=== PATIENT | male | born 1995 | race Caucasian/White ===

== ENCOUNTER 2024-02-14 16:07 | Emergency (ER) | payer BC, SELFPAY ==
[2024-02-14 16:10] VITALS: BP 151/75
[2024-02-14 16:43] VITALS: BMI 25.8
[2024-02-14 16:46] VITALS: BP 124/74
[2024-02-14 17:00] VITALS: BP 112/59
--- NOTE | 2024-02-14 17:03 | ED.GENMED ---
History of Present Illness
General
Chief Complaint: Heart Rate Problem
Source: patient
Exam Limitations: none
Time Seen by Provider: 02/14/24 17:01
Nursing documentation reviewed up to this point in time: agreed with
History of Present Illness
History of Present Illness:
37 male presents to the ER for evaluation. Patient reports for the past 24 hours he has intermittently felt a fluttering in his chest. He reports he looks on his watch and the beat look different than his other beats. He denies any associated
shortness of breath or chest pain with this. He did have this in the past was seen by cardiology, send looks cardiology here at [place] but was not able to get a Holter monitor because it took long to order. He did have a normal echo.
He has no issues with exercise and runs 3 times a week.
Past History
Past History
ED Past Medical History: None
ED Past Surgical History: None
Social History
Tobacco: Non-smoker
Alcohol: None
Drug: None
Review of Systems
Review of Systems
Allergies reviewed?: Yes
All Other Systems: ROS reviewed and negative except as documented in HPI and ROS
Constitutional: Reports no symptoms
Respiratory: Reports no symptoms
Cardiac: Reports other (fluttering sensation ); Denies chest pain or syncope
ABD/GI: Reports no symptoms
Musculoskeletal: Reports no symptoms
Skin: Reports no symptoms
Neurological: Reports no symptoms
Psychiatric: Reports no symptoms
Phy Exam
General Physical Exam
General Presentation: no apparent distress
General age: appears stated age
General Skin: warm and dry
General Habitus: normal
General Mental: alert
General Hydration: appears well hydrated
Cardiovascular Exam
Cardiovascular Exam: regular rate/rhythm, no murmur and normal peripheral pulses
Pulmonary Exam
Pulmonary Exam: lungs clear and no respiratory distress
Neurological Exam
Neurological Exam: alert and oriented x3
Musculoskeletal Exam
Musculoskeletal Exam: full ROM
Skin Exam
Skin Exam: normal color and warm/dry
Psychiatric Exam
Psychiatric Exam: normal mood/affect
Course
Orders/Labs/Results
Orders:
Orders
02/14/24 16:12
Electrocardiogram (*1) Urgent
Reason for Study: Palpitations
EKG- Treatment ONCE
02/14/24 16:54
Basic Metabolic Panel Urgent
Complete Blood Count/With Diff Urgent
Magnesium Urgent
TSH Reflex To Free T4 Urgent
Abnormal Lab Results
02/14/24
16:54
MPV 11.7 H fL
(7.4-10.4)
Glucose 105 H mg/dl
(70-99)
02/14/24 16:54
02/14/24 16:54
Vital Signs
Initial and Last Documented VS:
Initial Vital Signs
Temp Pulse Resp BP Pulse Ox
98 F 66 18 151/75 99
02/14/24 16:10 02/14/24 16:10 02/14/24 16:10 02/14/24 16:10 02/14/24 16:10
Last Documented Vital Signs
Temp Pulse Resp BP Pulse Ox
98 F 62 20 122/63 99
02/14/24 16:10 02/14/24 18:15 02/14/24 18:15 02/14/24 18:00 02/14/24 18:15
MDM/Problems Addressed
Differential Diagnosis Includes:
Not limited to arrhythmia
MDM/Problems Addressed:
Patient is a 29-year-old male who presented for evaluation of a fluttering sensation in his chest. He had this previously and was seen by cardiology had a normal echo but never had a Holter monitor. Patient presents awake alert no acute distress
he denies any chest pain shortness of breath with this. This is similar to his previous episode however he has not had it in a while. On the monitor patient has had very intermittent occasional PVCs likely the cause of his symptoms. EKG is normal
sinus rhythm normal electrolytes no other acute lab abnormalities. Because patient is having symptoms of PVCs would recommend discharging back to cardiology for follow-up and recommend a Holter monitor that he never received in the past. He has
seen [facility] will refer back to them. Stable for discharge home.
*Pulse Oximetry
Patient hypoxic: no
*EKG
Interpreted by ED Provider?: Yes
Interpretation: normal
Heart Rate: 75
Rate: normal
Rhythm: sinus
Ischemia: no ischemia
*Critical Care Note
Total Time (30-74mins, 75-104mins- exclusive of procedures): Not Applicable
ED Attending Note
-
Portions of this chart may have been created with voice recognition software.� Occasional wrong word or��sound alike� substitutions may have occurred due to the inherent limitations of voice recognition software.
Discharge Plan
Departure
Patient Disposition: Home (Routine Discharge)
Date of Disposition: 02/14/24
Time of Disposition: 18:42
Patient with high blood pressure during this ER visit?: Yes
Condition: Fair
Covid-19: Not Applicable
Discharge Problem:
Heart palpitations
Instructions: Palpitations (DC), BLOOD PRESSURE
Prescriptions:
No Action
No Current Medications
0
Referrals:
Zhao Jara MD [Active] -
UNKNOWN - PT DOES,NOT KNOW [Family Provider] -
Activity Restrictions/Additional Instructions:
Follow-up with cardiology as discussed. Please call tomorrow to make an appointment. Return if any worsening of symptoms.
Interventions
Interventions:
*Risk Screen - Suicide Last Done: 02/14/24 16:10
*General Assessment Last Done: 02/14/24 16:10
*Neglect/Abuse Screening Last Done: 02/14/24 16:10
*ED COVID-19 Vaccine History Last Done: 06/30/24 16:43
ED- Cardiac Assessment Last Done: 02/14/24 16:47
ED- Pulmonary Assessment Last Done: 02/14/24 16:47
Discharge Date and Time
Print Language: HUNGARIAN
[2024-02-14 17:07] LABS: % Basophils 1.3 % (0-2); % Eosinophils 1.8 % (0-6); % Monocytes 9.1 % (1.7-9.3); % Neutrophils 58.8 % (42.2-75.2); Absolute Basophils 0.1 10^3/uL (0-0.2); Absolute Eosinophils 0.1 10^3/uL (0-0.7); Absolute Lymphocytes 1.6 10^3/uL (1.2-3.4); Absolute Monocytes 0.5 10^3/uL (0.1-0.6); Absolute Neutrophils 3.3 10^3/uL (1.4-6.5); Hemoglobin 15.2 g/dL (13.0-18.0); Mean Corp Hgb Conc. 36.2 g/dL (33.0-37.0); Mean Corpuscular Hgb 30.9 pg (27.0-31.0); Mean Corpuscular Volume 85.4 fL (80.0-94.0); Mean Platelet Volume 11.7 fL (7.4-10.4); Nucleated Red Blood Cells % 0 % (-); Platelet Count 136 10^3/uL (130-400); Red Blood Cell Count 4.92 10^6/uL (4.70-6.10); Red Cell Dist. Width 12.9 % (11.5-14.5); White Blood Cell Count 5.6 10^3/uL (4.8-10.8)
[2024-02-14 17:15] LABS: Blood Urea Nitrogen 18 mg/dl (9-20); Calcium 9.8 mg/dl (8.4-10.2); Carbon Dioxide 26 mmol/L (22-30); Chloride 105 mmol/L (98-107); Estimated Creatinine Clearance 105 ml/min; Glucose 105 mg/dl (70-99); Magnesium 2.2 mg/dl (1.6-2.3); Sodium 140 mmol/L (135-145); eGFR > 60.00
[2024-02-14 18:00] VITALS: BP 122/63
== END 2024-02-14 18:52 | disposition home or self-care (01) ==
LOC: EMR 16:07
PROVIDERS: Emergency Medicine; EMERGENCY PHYSICIAN Emergency Medicine
DX: R00.2 Palpitations (principal)
CPT/HCPCS: 99283; 80048; 83735; 84443; 85025; 93005

== ENCOUNTER → 2024-05-12 08:53 | Outpatient (REF) | payer BC, SELFPAY | LOC: HWRAD 08:53 | PROVIDERS: ATTENDING PHYSICIAN Student in an Organized Health Care Education/Training Program | DX: N50.89 Other specified disorders of the male genital organs (principal) | CPT/HCPCS: 76870; 93976 ==